=== PATIENT | female | born 1945 | race Caucasian/White ===

== ENCOUNTER 2020-01-24 09:29 | Outpatient (CLI) | payer MEDICARE, OTHER, SELFPAY ==
--- NOTE | 2020-01-24 10:00 | MM_ITS ---
WS: [id number] BILATERAL DIGITAL SCREENING MAMMOGRAPHY WITH CAD CLINICAL INFORMATION: breast cancer screening HISTORY: Screening mammogram. No current complaints. COMPARISON: TECHNIQUE: Bilateral CC and MLO views. FINDINGS: The breasts are composed of heterogeneous fibroglandular density tissue, which can limit the detectio n of small underlying mass lesions. No suspicious mass, asymmetry, calcifications, or architectural d istortion. No evidence of malignancy. MM/[place] [id number] IMPRESSION: BI-RADS: 1-Negative FOLLOW UP: 1 Year Follow-up Recommend return to annual screening mammography.
== END 2020-01-24 09:30 | disposition home or self-care (01) ==
LOC: RADSHAW 09:35
PROVIDERS: PCP Nurse Practitioner Family; Visit Provider Nurse Practitioner Family
DX: Z12.31 Encounter for screening mammogram for malignant neoplasm of breast (principal); L82.1 Other seborrheic keratosis; L81.4 Other melanin hyperpigmentation; L81.8 Other specified disorders of pigmentation; D36.10 Benign neoplasm of peripheral nerves and autonomic nervous system, unspecified; D22.9 Melanocytic nevi, unspecified; D23.9 Other benign neoplasm of skin, unspecified
CPT/HCPCS: 77067; 99203

== ENCOUNTER → 2022-02-06 14:25 | Outpatient (BNVA) | payer MEDICARE, OTHER, SELFPAY | PROVIDERS: PCP Nurse Practitioner Family; Visit Provider Surgery | DX: K21.9 Gastro-esophageal reflux disease without esophagitis (principal) | CPT/HCPCS: 99203; 99213 ==

== ENCOUNTER 2022-03-11 08:15 | Outpatient (CLI) | payer MEDICARE, OTHER, SELFPAY ==
--- NOTE | 2022-03-11 08:30 | FL_ITS ---
WS: [id number] DOUBLE CONTRAST UPPER GI EXAMINATION HISTORY: ESOPHAGEAL REFLUX COMPARISON: None available. FLUOROSCOPY TIME: 2min 23.668845pbd minutes. Barium traveled readily through the esophagus. Esophagus is dilated and patulous distally. No high-gr heber stricture. Intermittently visualized large hiatal hernia. No reflux was demonstrated during the e xamination but the GE junction did at times appear open and the distal esophagus was dilated. Stomach is distensible and pliable. Normal duodenum. No ulceration. Atherosclerosis aorta. FL/FL upper GI w air* [id number] IMPRESSION: 1. Dilated patulous mid to distal esophagus with intermittently visualized lar ge hiatal hernia. 2. No reflux was demonstrated but the GE junction did appear patulous. 3. Negative appearance of the stomach.
== END 2022-03-11 08:16 | disposition home or self-care (01) ==
LOC: RAD 08:15
PROVIDERS: PCP Nurse Practitioner Family; Visit Provider Surgery
DX: K21.9 Gastro-esophageal reflux disease without esophagitis (principal); K44.9 Diaphragmatic hernia without obstruction or gangrene
CPT/HCPCS: 74246

== ENCOUNTER 2022-04-15 07:21 | Day surgery (SDC) | payer MEDICARE, OTHER, SELFPAY ==
[2022-04-11 11:09] VITALS: BMI 30.2
[2022-04-15 07:43] VITALS: BP 148/74; PULSE 80; RESP 18; TEMP 36.6; O2SAT 96
[2022-04-15] MEDS: sodium chloride 0.9% 1,000 ML 30 ML IV (07:50)
--- NOTE | 2022-04-15 08:00 | ANES.PREANE2 ---
Pre-Anesthetic Assessment Height/Weight: Height 1.57 m Weight 74.843 kg Temp Pulse Resp BP Pulse Ox O2 Del Method 98 F 80 18 148/74 96 04/15/22 07:43 04/15/22 07:43 04/15/22 07:43 04/15/22 07:43 04/15/22 07:43 04/15/22 07:43 Preop Diagnosis: Persistent acid reflux disease Operation Date: 04/15/22 09:00 Proposed Procedures p EGD 30248,K21.9(Not Applicable) - Chevy Olsen MD Familial anesthetic complications: none Was Beta Janis taken within 24 hours: N/A Was Clonidine taken within 24 hours: N/A Last intake: Intake Last Liquid Date 04/14/22 Last Liquid Time 20:00 Last Solid Date 04/14/22 Last Solid Time 18:00 Social No alcohol and No tobacco Exam alert, oriented x 3, clear to auscultation bilaterally and regular rate & rhythm Airway Submandibular: within normal limits Cervical ROM: within normal limits Mallampati: Class II Dentition: false CV/HEM Hypertension GI Gastroesophageal Reflux Disease Metabolic Hyperlipidemia Neuropsych Anxiety and Depression Anesthetic Plan ASA status: 2 Anesthesia: MAC Medications/Allergies Home Medications Medication Instructions Recorded Confirmed Last Taken Type citalopram 20 mg tablet 20 ea PO DAILY 11/29/19 04/11/22 04/14/22 History lisinopril 5 mg tablet 5 mg PO DAILY 11/29/19 04/11/22 04/14/22 History omeprazole 40 mg capsule,delayed 40 mg PO DAILY 11/29/19 04/11/22 04/14/22 History release oxybutynin chloride 5 mg tablet 5 mg PO DAILY 11/29/19 04/11/22 04/14/22 History simvastatin 40 mg tablet 40 mg PO DAILY 11/29/19 04/11/22 04/14/22 History aspirin 81 mg tablet,delayed 81 mg PO DAILY 02/06/22 04/11/22 04/14/22 History release atorvastatin 20 mg tablet 20 mg PO DAILY 02/06/22 04/11/22 04/14/22 History Allergies Allergy/AdvReac Type Severity Reaction Status Date / Time Sulfa (Sulfonamide AdvReac Severe kidney Verified 02/08/22 06:02 Antibiotics) problems [facility] Anesthesia Medical History Essential hypertension GERD (gastroesophageal reflux disease) Mixed hyperlipidemia Stress incontinence Surgical History H/O esophagogastroduodenoscopy History of removal of cyst S/P right knee arthroscopy Status post colonoscopy Social History Smoking and tobacco status: never smoked Second hand smoke exposure: No Smoking risk assessment/counseling performed?: No Alcohol intake: never Desire information about alcohol rehabilitation?: No Counseling given: No Desire information about substance/drug rehabilitation?: No Counseling given: No Data Anesthesia Cardiac Studies: No Data to Display
--- NOTE | 2022-04-15 08:53 | W.PM.OPSFHP ---
Same Day Surgery H&P Indication for Procedure/HPI DATE OF PROCEDURE: April 15, 2022 CHIEF COMPLAINT/INDICATIONFOR SURGICAL PROCEDURE: Worsening acid reflux PREOP DIAGNOSIS: Persistent acid reflux disease PLANNED PROCEDURE: Operation Date: 04/15/22 09:00 Proposed Procedures p EGD 24022,K21.9(Not Applicable) - Chevy Olsen MD 02/06/2022 This is a pleasant 76 years old female patient referred to my practice with history of indigestion and worsening acid reflux.? Patient has been on PPI therapy for more than 6 months and it just getting worse.? No available upper GI study or previous endoscopies per chart. 04/15/2022 Comes today for diagnostic EGD and upper GI study requested by me that was done on 03/11/2022 that did show 1.? Dilated patulous mid to distal esophagus with intermittently visualized large hiatal hernia. 2.? No reflux was demonstrated but the GE junction did appear patulous. 3.? Negative appearance of the stomach. ROS All systems have been reviewed negative except as for the above or per problem list. Medications/Allergies* Home Medications Medication Instructions Recorded Confirmed Type citalopram 20 mg tablet 20 ea PO DAILY 11/29/19 04/11/22 History lisinopril 5 mg tablet 5 mg PO DAILY 11/29/19 04/11/22 History omeprazole 40 mg capsule,delayed 40 mg PO DAILY 11/29/19 04/11/22 History release oxybutynin chloride 5 mg tablet 5 mg PO DAILY 11/29/19 04/11/22 History simvastatin 40 mg tablet 40 mg PO DAILY 11/29/19 04/11/22 History aspirin 81 mg tablet,delayed 81 mg PO DAILY 02/06/22 04/11/22 History release atorvastatin 20 mg tablet 20 mg PO DAILY 02/06/22 04/11/22 History Allergies/Adverse Reactions Allergy/AdvReac Type Severity Reaction Status Date / Time Sulfa (Sulfonamide AdvReac Severe kidney Verified 02/08/22 06:02 Antibiotics) problems Pertinent History/Comorbid Conditions* Medical History (Updated 02/08/22 @ 06:02 by Chevy Olsen MD) Essential hypertension GERD (gastroesophageal reflux disease) Mixed hyperlipidemia Stress incontinence Surgical History (Updated 04/20/20 @ 10:06 by Butch Miles MD) H/O esophagogastroduodenoscopy History of removal of cyst S/P right knee arthroscopy Status post colonoscopy Social History Smoking and tobacco status: never smoked Second hand smoke exposure: No Smoking risk assessment/counseling performed?: No Alcohol intake: never Desire information about alcohol rehabilitation?: No Counseling given: No Desire information about substance/drug rehabilitation?: No Counseling given: No Pertinent Exam Findings alert, oriented x 3, regular rate & rhythm and procedure specific exam findings (Abdominal exam nontender nondistended soft) Recommendations Surgery/Procedure today (EGD with possible biopsy) Coding Level of Care Code Acute Customer Solutions Representative for Dio Fwandrew
[2022-04-15 10:13] VITALS: BP 114/81; PULSE 74; RESP 18; O2SAT 95
--- NOTE | 2022-04-15 16:31 | ANE.PACU2 ---
Inpatient post-anesthesia follow up: Airway intact: Yes Vital signs: Temperature 98 F Pulse Rate 74 Respiratory Rate 18 Blood Pressure 114/81 Pulse Oximetry 95 Oxygen Delivery Me thod Room Air Oxygen Flow Rate Fraction of Inspir ed Oxygen Hydration adequate: Yes Nausea and vomiting: No Pain level: 2 Mental status: Baseline
== END 2022-04-15 10:13 | disposition home or self-care (01) ==
PROVIDERS: PCP Nurse Practitioner Family; Visit Provider Surgery
PROC: 0DJ08ZZ Inspection of Upper Intestinal Tract, Via Natural or Artificial Opening Endoscopic (ICD-10-PCS; CPT 43235; principal; 2022-04-15 09:00)
DX: K21.00 Gastro-esophageal reflux disease with esophagitis, without bleeding (principal); Z79.82 Long term (current) use of aspirin; I10 Essential (primary) hypertension; E78.2 Mixed hyperlipidemia; K44.9 Diaphragmatic hernia without obstruction or gangrene; K29.70 Gastritis, unspecified, without bleeding
CPT/HCPCS: 43239; 88305; J2704; J7030

== ENCOUNTER → 2022-04-22 12:48 | Outpatient (BNVA) | payer MEDICARE, OTHER, SELFPAY | PROVIDERS: PCP Nurse Practitioner Family; Visit Provider Surgery | DX: K29.70 Gastritis, unspecified, without bleeding (principal); K44.9 Diaphragmatic hernia without obstruction or gangrene | CPT/HCPCS: 99213 ==

== ENCOUNTER 2022-10-10 15:07 | Outpatient (CLI) | payer MEDICARE, OTHER, SELFPAY ==
--- NOTE | 2022-10-10 15:13 | MM_ITS ---
WS: [id number] BILATERAL 3D TOMOSYNTHESIS DIGITAL SCREENING MAMMOGRAPHY WITH CAD CLINICAL INFORMATION: SCREENING HISTORY: Screening mammogram. No current complaints. COMPARISON: 2020 TECHNIQUE: Bilateral CC and MLO views. FINDINGS: Scattered fibroglandular densities bilaterally. No suspicious focal mass, asymmetry, calcifications, or architectural distortion. No evidence of malignancy. Vascular calcification. A few incidental punc ramos calcifications. MM/[place] [id number] IMPRESSION: BI-RADS: 2-Benign FOLLOW UP: 1 Year Follow-up Recommend return to annual screening mammography.
== END 2022-10-10 15:08 | disposition home or self-care (01) ==
LOC: RAD 15:10
PROVIDERS: PCP Nurse Practitioner Family; Visit Provider Nurse Practitioner Family
DX: Z12.31 Encounter for screening mammogram for malignant neoplasm of breast (principal)
CPT/HCPCS: 77063; 77067

== ENCOUNTER 2023-09-11 14:28 | Inpatient (IN) | payer MEDICARE, OTHER, SELFPAY ==
[2023-09-11 14:30] VITALS: BP 96/58; PULSE 130; RESP 16; TEMP 37.9; O2SAT 98; BMI 31.1
--- NOTE | 2023-09-11 14:51 | XRR_ITS ---
PROCEDURE INFORMATION: Exam: XR Chest Exam date and time: 09/11/2023 3:36 PM Age: 78 years old Clinical indication: Pain; Angina pectoris; Additional info: Chest pain TECHNIQUE: Imaging protocol: Radiologic exam of the chest. Views: 1 view. COMPARISON: No relevant prior studies available. FINDINGS: Lungs: No consolidation. Pleural spaces: No pleural effusion. No pneumothorax. Heart/Mediastinum: No acute findings. Bones/joints: No acute findings. XR/XR chest 1V portable [id number] IMPRESSION: No acute findings.
--- NOTE | 2023-09-11 14:53 | ECG_ITS ---
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 Measurements Intervals Oracle Rate: 85 P: 41 UT: 162 QRS: -3 QRSD: 77 T: 45 QT: 376 QTc: 447 Interpretive Statements SINUS RHYTHM WITH OCCASIONAL SUPRAVENTRICULAR PREMATURE COMPLEXES LOW QRS VOLTAGE IN PRECORDIAL LEADS [QRS DEFLECTION < 1.0 mV IN CHEST LEADS] ANTEROSEPTAL MYOCARDIAL INFARCTION , OF INDETERMINATE AGE [40+ ms Q WAVE IN V1-V4] No previous ECG available for comparison Electronically Signed On 09-13-2023 12:39:19 CDT by Oleg Sawyer M.D. [id number]
--- NOTE | 2023-09-11 14:53 | ED_ITS ---
HPI - Nausea/Vomiting/Diarrhea 2 General: Chief complaint: Nausea/Vomiting/Diarrhea Stated complaint: Fever, Sob, N/V Time Seen by Provider: 09/11/23 14:51 History of Present Illness: 78-year-old female with a history of hyp ertension hyperlipidemia and GERD who presents the emergency room with nausea vomiting diarrhea. This all started yesterday. She was seen at a different emergency room and was given Phenergan pills for home and has not able to keep those down and is continue to vomit. Diarrhea has subsided. She has been very generally weak. Nothing focal. No altered mental status. Her blood pressure is low on presentation. She has not been eating or drinking anything she says. She also had a fever of 103 at home. She is 100.3 here. Family had given her some Excedrin. She has no focal abdominal pain. She says she was a little crampy yesterday but otherwise she was okay. Patient does report a cough recently. Review of Systems 2 Narrative: Constitutional symptoms: Negative except as documented in HPI. Skin symptoms: Negative except as documented in HPI. Eye symptoms: Negative except as documented in HPI. ENMT symptoms: Negative except as documented in HPI. Respiratory symptoms: Negative except as documented in HPI. Cardiovascular symptoms: Negative except as documented in HPI. Gastrointestinal symptoms: Negative except as documented in HPI. Genitourinary symptoms: Negative except as documented in HPI. Musculoskeletal symptoms: Negative except as documented in HPI. Neurologic symptoms: Negative except as documented in HPI. Psychiatric symptoms: Negative except as documented in HPI. Endocrine symptoms: Negative except as documented in HPI. PFS ED 2 PFSH: Medical History Essential hypertension GERD (gastroesophageal reflux disease) Mixed hyperlipidemia Stress incontinence Surgical History H/O esophagogastroduodenoscopy History of removal of cyst S/P right knee arthroscopy Status post colonoscopy Social History Smoking and tobacco/nicotine status: never used tobacco/nicotine Second hand smoke exposure: No Alcohol intake: never Substance/Drug Use: never Physical Exam 2 Narrative: EXAM NARRATIVE: General: Alert, no acute distress. Skin: Warm, dry. Head: Normocephalic, atraumatic. Neck: Supple, trachea midline. Eye: Extraocular movements are intact. Ears, nose, mouth and throat: Dry oral mucosa Cardiovascular: Regular, tachycardic, normal peripheral perfusion. Respiratory: Lungs are clear to auscultation, respirations are non-labored, breath sounds are equal, Symmetrical chest wall expansion. Gastrointestinal: Soft, Nontender, Non distended, Normal bowel sounds. Musculoskeletal: Normal ROM, no deformity. Neurological: Alert and oriented, No focal neurological deficit observed. Psychiatric: Cooperative, appropriate mood & affect. Course 2 Vital Signs: Vital signs: Vital Signs Temperature 100.3 F H 09/11/23 14:30 Pulse Rate 78 09/11/23 15:50 Respiratory Rate 16 09/11/23 14:30 Blood Pressure 96/58 09/11/23 14:30 Pulse Oximetry 94 09/11/23 15:50 Oxygen Delivery Me thod Room Air 09/11/23 14:30 MDM - Nausea/Vomiting/Diarrhea Medical Decision Making Medical decision making: Differential diagnosis for this patient with nausea and vomiting including but not limited to and based on the above HPI, review of systems and physical exam: Urinary tract infection. Appendicitis. Cholecystis. colitis. small bowel obstruction. crohn's flare. pancreatitis. gastritis. peptic ulcer. cyclic vomiting. Viral illness. Influenza. COVID. - Workup - labwork and imaging ordered to evaluate, rule in and rule out above pathologies. Lab Review: Laboratory results were reviewed and interpreted by myself the emergency room physician. Patient has leukocytosis with a white count of 19,000. Hemoglobin is 12. BUN and creatinine are 21 and 1.2 some slight renal insufficiency. Chest x-ray: No acute process. No infiltrate. No pneumothorax. No cardiomegaly. This was reviewed and interpreted by myself the ER physician. EKG: Time 1453 rate 85 normal sinus rhythm, No ST-T changes, no ectopy, normal SC & QRS intervals, This was reviewed and interpreted by myself the ER physician at 1456. I looked at her CT of her chest at 4:46 PM. There is a right lower lobe pneumonia that was not seen on chest x-ray. Patient had already received 2 L of fluid which would be appropriate 30 mL/kg for her ideal body weight. I ordered broad-spectrum antibiotics at 4:[address] of the abdomen and pelvis: There is no acute intra-abdominal process. However a right lower lobe consolidation is seen. This was not seen on chest x- ray. This was reviewed and interpreted by myself the emergency room physician. I also reviewed the radiologist report I reviewed the patient's medical record. Reexamination: Patient's blood pressure is improved and her heart rate has improved as well. She is requiring a couple liters of oxygen mainly for work of breathing. O2 sats were in the low 90s but she was feeling very short of breath. Her heart rate and blood pressure may have been just related to dehydration, however she also has a elevated white count so I am treating her is septic. Assessment and plan: Pneumonia Sepsis Viral gastroenteritis Dehydration -Patient has was probably a viral gastroenteritis and a pneumonia that is most likely bacterial. She was hypotensive and tachycardic on presentation and has white count of 20,000. I am treating her as if she was septic. Her lactate however was initially only 1.4. She has responded to fluids. -2 L normal saline bolus. Fluid volumes based on ideal body weight. -Broad-spectrum antibiotics were administered. Meropenem and Zyvox -Sepsis quality measures. -Lactic acid with a reflex was ordered. -Blood cultures were ordered. Procalcitonin ordered. -I discussed the patient with the hospitalist on-call who is admitting the patient. - Discussed findings and plan with patient. Answered any questions. - All laboratory values were reviewed and interpreted personally by myself, the ER physician - All imaging was reviewed and interpreted personally by myself, the ER physician. - Evaluation and treatment of this problem were appropriate in the emergency setting -I spent a total of >35 minutes of critical care time managing the patient, independent of any other practitioner. -The time involved in the performance of separately reportable procedures was not counted towards critical care time. Lab Data 09/11/23 15:24 09/11/23 15:24 Radiology Impressions Chest X-Ray 09/11/23 14:51 IMPRESSION: No acute findings. ADDENDUM: 09/11/23 1649 Right lower lobe atelectasis/consolidation. Abdomen/Pelvis CT 09/11/23 16:08 IMPRESSION: No acute abdominal findings. Right lower lobe consolidation/pneumonia. Laboratory Results WBC 19.09 10^3/uL (3.29-11.43) H 09/11/23 15:24 RBC 4.05 10^6/uL (3.85-5.65) 09/11/23 15:24 Hgb 12.20 g/dL (11.27-16.99) 09/11/23 15:24 Hct 37.0 % (36-47) 09/11/23 15:24 MCV 91.4 fl (85-98) 09/11/23 15:24 MCH 30.1 pg (27-33) 09/11/23 15:24 MCHC 33.0 g/dL (30-55) 09/11/23 15:24 RDW 12.4 % (12.1-15.1) 09/11/23 15:24 Plt Count 258 10^3/cmm (157-399) 09/11/23 15: MPV 9.0 fL (7.4-10.4) 09/11/23 15:24 Neut % (Auto) 86.2 % 09/11/23 15:24 Lymph % (Auto) 6.0 % 09/11/23 15:24 [place] % (Auto) 6.8 % 09/11/23 15:24 Eos % (Auto) 0.0 % 09/11/23 15:24 Baso % (Auto) 0.3 % 09/11/23 15:24 Neut # (Auto) 16.47 10^3/uL (1.8-7.7) H 09/11/23 15:24 Lymph # (Auto) 1.1 10^3/uL (0.8-4.8) 09/11/23 15:24 [place] # (Auto) 1.3 10^3/uL (0.2-0.9) H 09/11/23 15:24 Eos # (Auto) 0.0 10^3/uL (0.0-0.8) 09/11/23 15:24 Baso # (Auto) 0.1 10^3/uL (0.0-0.1) 09/11/23 15:24 Nucleated RBC % (auto) 0 % 09/11/23 15:24 Nucleated RBCs # 0.0 /100WBC 09/11/23 15:24 Sodium 133 mmol/L (136-145) L 09/11/23 15:24 Potassium 3.9 mmol/L (3.5-5.1) 09/11/23 15:24 Chloride 97 mmol/L (98-107) L 09/11/23 15:24 Carbon Dioxide 20 mmol/L (22-29) L 09/11/23 15:24 Anion Gap 19.9 (5-19) H 09/11/23 15:24 BUN 21 mg/dL (8-23) 09/11/23 15:24 Creatinine 1.2 mg/dL (0.5-0.9) H 09/11/23 15:24 GFR Calculation Not Reportable 09/11/23 15:24 Glucose 140 mg/dL (65-115) H 09/11/23 15:24 Calculated Osmolality 281 mOsm/kg (285-295) L 09/11/23 15:24 Lactic Acid 1.4 mmol/L (0.5-2.2) 09/11/23 15:24 Calcium 8.8 mg/dL (8.5-10.5) 09/11/23 15:24 Total Bilirubin 0.5 mg/dL (0.15-1.2) 09/11/23 15:24 AST 20 U/L (0-32) 09/11/23 15:24 ALT 14 U/L (0-33) 09/11/23 15:24 Alkaline Phosphatase 60 U/L (35-105) 09/11/23 15:24 Total Protein 7.8 g/dL (6.6-8.7) 09/11/23 15:24 Albumin 3.7 g/dL (3.5-5.2) 09/11/23 15:24 Globulin 4.1 g/dL (1.3-4.6) 09/11/23 15:24 Lipase 24 U/L (13-60) 09/11/23 15:24 All radiology interpretation(s) finalized by discharge Discharge Plan Discharge Patient Disposition: Admitted As Inpatient Clinical Impression: Pneumonia, Dehydration, Sepsis, Viral gastroenteritis, Hypotension Condition: Stable Coding Level of Care Code ED Labor Utilization Superintendent for Dio Machado
[2023-09-11 15:05] VITALS: PULSE 74; O2SAT 94
[2023-09-11 15:20] VITALS: PULSE 79; O2SAT 93
[2023-09-11] MEDS: sodium chloride 0.9% 1,000 ML 999 ML IV ×2 (15:29→21:46)
[2023-09-11 15:31] LABS: Basophils # 0.1 10^3/uL (0.0-0.1); Basophils % 0.3 %; Lymphocytes # 1.1 10^3/uL (0.8-4.8); Mean Corpuscular Hemoglobin 30.1 pg (27-33); Mean Corpuscular Volume 91.4 fl (85-98); Monocytes # 1.3 10^3/uL (0.2-0.9); Monocytes % 6.8 %; Neutrophils # 16.47 10^3/uL (1.8-7.7); Neutrophils % 86.2 %; Nucleated Red Blood Cells % 0 %; Platelet Count 258 10^3/cmm (157-399); Red Blood Count 4.05 10^6/uL (3.85-5.65); Red Cell Distribution Width 12.4 % (12.1-15.1); White Blood Count 19.09 10^3/uL (3.29-11.43)
[2023-09-11] MEDS: ondansetron 2 mg/ML SDV 2 mL 8 MG IVP (15:31)
[2023-09-11 15:35] VITALS: PULSE 76; O2SAT 93
[2023-09-11 15:50] VITALS: PULSE 78; O2SAT 94
[2023-09-11 15:54] LABS: Lactic Sepsis W/Reflex 1.4 mmol/L (0.5-2.2)
[2023-09-11 15:56] LABS: Alanine Aminotransferase 14 U/L (0-33); Albumin Level 3.7 g/dL (3.5-5.2); Alkaline Phosphatase 60 U/L (35-105); Anion Gap 19.9 (5-19); Aspartate Amino Transferase 20 U/L (0-32); Blood Urea Nitrogen 21 mg/dL (8-23); Calcium 8.8 mg/dL (8.5-10.5); Carbon Dioxide 20 mmol/L (22-29); Chloride 97 mmol/L (98-107); Creatinine Clr Calc Pharmacy 36.5905; Globulin 4.1 g/dL (1.3-4.6); Glucose 140 mg/dL (65-115); Lipase 24 U/L (13-60); Osmolality Calculated 281 mOsm/kg (285-295); Potassium 3.9 mmol/L (3.5-5.1); Sodium 133 mmol/L (136-145); Total Bilirubin 0.5 mg/dL (0.15-1.2); Total Protein 7.8 g/dL (6.6-8.7)
--- NOTE | 2023-09-11 16:08 | CTR_ITS ---
PROCEDURE INFORMATION: Exam: CT Abdomen And Pelvis With Contrast Exam date and time: 09/11/2023 4:28 PM Age: 78 years old Clinical indication: Vomiting; Prior surgery; Surgery date: 6+ months; Surgery type: Esophageal; Additional info: Vomiting, leukocytosis TECHNIQUE: Imaging protocol: Computed tomography of the abdomen and pelvis with contrast. Radiation optimization: All CT scans at this facility use at least one of these dose optimization techniques: automated exposure control; mA and/or kV adjustment per patient size (includes targeted exams where dose is matched to clinical indication); or iterative reconstruction. Contrast material: OMNI 350; Contrast volume: 95 ml; Contrast route: INTRAVENOUS (IV); COMPARISON: RF FL upper GI w air* [id number] 03/11/2022 8:51 AM RADIATION DOSE METRICS: Total DLP (mGy-cm): 778.03 FINDINGS: Lungs: Right lower lobe consolidation/pneumonia. Liver: No acute findings Gallbladder and bile ducts: Cholecystectomy. Pancreas: No ductal dilation. Spleen: No splenomegaly. Adrenal glands: No mass. Kidneys and ureters: No stones or hydronephrosis. Stomach and bowel: No obstruction. Appendix: No evidence of appendicitis. Intraperitoneal space: No free air. No significant fluid collection. Vasculature: No abdominal aortic aneurysm. Lymph nodes: No enlarged lymph nodes. Urinary bladder: No acute findings. Reproductive: No acute findings. Bones/joints: No acute findings. Soft tissues: No acute findings. CT/CT abdomen pelvis w con* [id number] IMPRESSION: No acute abdominal findings. Right lower lobe consolidation/pneumonia.
[2023-09-11] MEDS: iohexol 350 mg/mL 500 mL Btl (per mL) IV (16:30)
[2023-09-11] MEDS: meropenem 500 MG in sodium chloride 0.9% (plus) 50 ML 100 MG IV (17:34)
--- NOTE | 2023-09-11 17:53 | P.HP_ITS ---
Providers/Chief Complaint 2 Primary Care Provider: Jd Gregory Chief Complaint: Fever, Sob, N/V History of Present Illness Teressa Gillespie is a 78 year old female who presented to hospital with chief complaint of fever, productive cough, nausea vomiting and diarrhea. Her symptoms started 3 to 4 days ago, no one is sick around her, she lives with a boyfriend, does not smoke, does not use oxygen. Her symptoms started with diarrhea which was followed by nausea and vomiting. Patient was reluctant to come to the ER however because of her worsening of symptoms she decided to go to the clinic from where she was referred to the ER for further evaluation. In the ER she was diagnosed with community-acquired pneumonia and sepsis. She has received septic bolus blood cultures were taken, antibiotics administered. Lactic acid is normal. Review of Systems 2 Const: Reports: fever(s), chills and night sweats Eyes: Denies: change in vision ENMT: Denies: throat pain Card: Denies: chest pain Resp: Reports: dyspnea and productive cough GI: Reports: nausea and vomiting Medications/Allergies Home Medications Medication Instructions Recorded Confirmed Last Taken Type citalopram 20 mg tablet 20 ea PO DAILY 11/29/19 09/11/23 09/10/23 History lisinopril 5 mg tablet 5 mg PO DAILY 11/29/19 09/11/23 09/10/23 History omeprazole 40 mg capsule,delayed 40 mg PO DAILY 11/29/19 09/11/23 09/10/23 History release oxybutynin chloride 5 mg tablet 5 mg PO DAILY 11/29/19 09/11/23 09/10/23 History aspirin 81 mg tablet,delayed 81 mg PO DAILY 02/06/22 09/11/23 09/10/23 History release atorvastatin 20 mg tablet 20 mg PO QPM 02/06/22 09/11/23 09/10/23 History hzkljfm-peamoxtmhiqrh-miyxczzp 250 2 tab PO Q6H PRN headache/fever 09/11/23 09/11/23 09/11/23 History mg-250 mg-65 mg tablet (Excedrin Migraine) bjndgkvf-qhk-eefoq ac 400 1 tab PO DAILY 09/11/23 09/11/23 09/10/23 History mcg-calcium carb 500 mg-vit K1 20 mcg tablet (Women's 50 Plus Multivitamin) promethazine 25 mg tablet 25 mg PO Q6H PRN Nausea And 09/11/23 09/11/23 09/11/23 History Vomiting vitamins A,C,G-hvwh-kmpzfe 4,296 1 cap PO DAILY 09/11/23 09/11/23 09/10/23 History mcg-226 mg-90 mg capsule (PreserVision AREDS) Allergies Allergy/AdvReac Type Severity Reaction Status Date / Time Sulfa (Sulfonamide AdvReac Severe kidney Verified 09/11/23 15:10 Antibiotics) problems PFSH Acute 2 PFSH: Medical History Essential hypertension Mixed hyperlipidemia Stress incontinence GERD (gastroesophageal reflux disease) Surgical History H/O esophagogastroduodenoscopy Status post colonoscopy S/P right knee arthroscopy History of removal of cyst Social History Smoking and tobacco/nicotine status: never used tobacco/nicotine Second hand smoke exposure: No Alcohol intake: never Substance/Drug Use: never Vitals/I&O/Wt Last Vital Signs Temp 100.3 F H 09/11/23 14:30 Pulse 78 09/11/23 15:50 Resp 16 09/11/23 14:30 BP 96/58 09/11/23 14:30 Pulse Ox 94 09/11/23 15:50 O2 Del Method Room Air 09/11/23 14:30 Weight last 48 hrs Weight 77.281 kg Physical Exam 2 Narrative: Pleasant calm Was experiencing dry heaves S1, S2 Currently on 2 L Hemodynamically stable No active chest pain Pleasant and cooperative Mild signs of dehydration Nonfocal neuroexam Family at the bedside Data 09/12/23 02:54 09/12/23 02:54 A&P Assessment and plan (1) Hypotension: (2) Gastritis: (3) Dehydration: (4) Sepsis: (5) Pneumonia: Plan Sepsis related to community-acquired pneumonia Continue IV fluids Septic bolus administered Criteria met with fever tachypnea tachycardia lactic acid is normal Endorgan damage with creatinine 1.2 Continue ceftriaxone along azithromycin Blood pressure improving with IV fluid hydration Nausea and vomiting most likely related to lower lobe pneumonia near diaphragm Will give her Zofran Check echo serial troponin and EKG Hypotensive related to sepsis: No sign of shock for now Hold antihypertensive regimen More than 2 midnights anticipated Attestations 2 Medical Necessity Statement*: More than 2 midnights anticipated for management of sepsis, pneumonia Diagnoses Hypotension I95.9 Gastritis K29.70 Dehydration E86.0 Sepsis A41.9 Pneumonia J18.9
[2023-09-11 20:03] VITALS: BP 150/70; PULSE 95; RESP 17; TEMP 36.6; O2SAT 90
--- NOTE | 2023-09-11 21:02 | ECG_ITS ---
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 Measurements Intervals [place] Rate: 74 P: 53 ME: 165 QRS: -3 QRSD: 91 T: 29 QT: 399 QTc: 443 Interpretive Statements SINUS RHYTHM LOW QRS VOLTAGE IN PRECORDIAL LEADS [QRS DEFLECTION < 1.0 mV IN CHEST LEADS] Compared to ECG 09/11/2023 14:53:52 Myocardial infarct finding no longer present Electronically Signed On 09-13-2023 12:48:09 CDT by Oleg Sawyer M.D. [id number]
[2023-09-11 21:19] LABS: Troponin(5th) Baseline 19 ng/L (0-10)
[2023-09-11 21:21] LABS: Add Urine Microscopic? YES; Bilirubin Urine Neg (Negative); Blood Urine 3+ (Negative); Glucose Urine UA Norm (Normal); Ketones Urine 2+ (Negative); Leukocyte Esterase Urine Negative (Negative); Nitrate Urine Negative (Negative); Protein Urine 2+ (Negative); Urine Appearance Clear (CLEAR); Urine Color Yellow (Yellow); Urobilinogen Urine 1 mg/dL (Negative); pH Urine 5 (5-7)
[2023-09-11 21:22] LABS: Amorphous Sediment Urine TRACE /hpf; Bacteria Urine TRACE /hpf; Coarse Granular Casts Urine 0-4 /lpf; Mucus Urine TRACE /hpf; Squamous Epithelial Cell Urine 0-4 /hpf (0-5); WBC Urine 15-25 /hpf (0-5)
[2023-09-11 21:23] LABS: Hyaline Casts Urine 0-4 /lpf
[2023-09-11] MEDS: linezolid premix 600 MG/300 ML PREMIX 300 MG IV (21:46)
[2023-09-11] MEDS: sodium chloride 0.9% 1,000 ML 75 ML IV (21:46)
[2023-09-11] MEDS: enoxaparin 40 mg/0.4 mL Syringe SUBCUT (21:47)
[2023-09-11] MEDS: ondansetron 2 mg/ML SDV 2 mL 4 MG IVP (22:14)
[2023-09-11 23:29] LABS: Troponin 5 2HR 17.11 ng/L (0-10)
[2023-09-11 23:35] LABS: Troponin 5 2HR Delta -1.89 ABS# (0-10)
[2023-09-12] VITALS (11 sets, daily range): BP systolic 101–171; BP diastolic 64–87; PULSE 78–97; RESP 17–20; TEMP 36.6–38.1; O2SAT 90–97
--- NOTE | 2023-09-12 01:02 | ECG_ITS ---
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 Measurements Intervals [place] Rate: 102 P: 47 CO: 167 QRS: 15 QRSD: 76 T: 36 QT: 321 QTc: 419 Interpretive Statements SINUS TACHYCARDIA LOW QRS VOLTAGE IN PRECORDIAL LEADS [QRS DEFLECTION < 1.0 mV IN CHEST LEADS] SEPTAL MYOCARDIAL INFARCTION , OF INDETERMINATE AGE [40+ ms Q WAVE IN V1/V2] Compared to ECG 09/11/2023 23:29:28 Myocardial infarct finding now present Sinus rhythm no longer present Electronically Signed On 09-13-2023 12:47:55 CDT by Oleg Sawyer M.D. [id number]
[2023-09-12 03:16] LABS: Basophils % 0.2 %; Hematocrit 34.7 % (36-47); Lymphocytes # 0.9 10^3/uL (0.8-4.8); Lymphocytes % 5.3 %; Mean Corpuscular HGB Conc 31.4 g/dL (30-55); Mean Corpuscular Hemoglobin 29.5 pg (27-33); Mean Platelet Volume 9.2 fL (7.4-10.4); Monocytes # 1.1 10^3/uL (0.2-0.9); Monocytes % 6.3 %; Neutrophils # 14.72 10^3/uL (1.8-7.7); Neutrophils % 87.4 %; Nucleated Red Blood Cells % 0 %; Platelet Count 228 10^3/cmm (157-399); Red Blood Count 3.69 10^6/uL (3.85-5.65); Red Cell Distribution Width 12.6 % (12.1-15.1); White Blood Count 16.86 10^3/uL (3.29-11.43)
[2023-09-12 03:34] LABS: Anion Gap 17.9 (5-19); Blood Urea Nitrogen 15 mg/dL (8-23); C Reactive Protein 239.8 mg/L (0.0-4.9); Calcium 7.6 mg/dL (8.5-10.5); Carbon Dioxide 19 mmol/L (22-29); Chloride 97 mmol/L (98-107); Creatinine Clr Calc Pharmacy 50.0829; Glucose 119 mg/dL (65-115); Magnesium 1.9 mg/dL (1.7-2.3); Osmolality Calculated 272 mOsm/kg (285-295); Potassium 3.9 mmol/L (3.5-5.1); Sodium 130 mmol/L (136-145)
[2023-09-12] MEDS: ondansetron 2 mg/ML SDV 2 mL 4 MG IVP (03:56)
--- NOTE | 2023-09-12 06:00 | USCV_ITS ---
Teressa Gillespie Age: 78 Gender: F : 1945 Exam Date: 09/12/2023 09:51 Ordering Phys: Sabrina Romo MD Technologist: Roberto Arteaga Exam Location: [facility] Indication: n/v BP: 149 / 80 HR: 83 Rhythm: Sinus Technical Quality: Adequate MEASUREMENTS (Male / Female) Normal Values 2D ECHO LV Diastolic Diameter PLAX 3.9 cm 4.2 - 5.9 / 3.9 - 5.3 cm IVS Diastolic Thickness 0.9 cm 0.6 - 1.0 / 0.6 - 0.9 cm IVS Systolic Thickness 1.5 cm LVPW Diastolic Thickness 1.1 cm 0.6 - 1.0 / 0.6 - 0.9 cm LVPW Systolic Thickness 1.8 cm LVOT Diameter 2.0 cm LV Ejection Fraction 2D Teich 73.4 % LV Ejection Fraction MOD 2C 78.4 % LV Ejection Fraction 2C AL 78.0 % LA Diameter 3.7 cm RA Systolic Volume 4C AL 29.3 ml RA Systolic Volume 4C MOD 27.9 ml LA Sys Volume AL 35.5 cm cubed LA Sys Volume Index AL 17.9 cm cubed/m squared Aorta at Sinotubular Diameter 2.6 cm IVC Diameter 1.7 cm M-MODE LA Ao Ratio MM 1.4 AV Cusp Separation MM 1.4 cm DOPPLER AV Peak Velocity 199.0 cm/s LVOT Peak Velocity 176.0 cm/s AV Area Cont Eq vti 3.3 cm squared AV Area Cont Eq pk 2.8 cm squared MV Peak Velocity 144.0 cm/s MV Area PHT 5.0 cm squared Mitral E to A Ratio 0.7 TV Peak Velocity 369.0 cm/s TR Peak Velocity 376.0 cm/s TR Peak Gradient 56.6 mmHg TR Mean Velocity 273.0 cm/s TR Mean Gradient 34.7 mmHg TR Velocity Time Integral 101.0 cm PV Peak Velocity 100.0 cm/s RV Ejection Time 0.3 s FINDINGS Left Ventricle Left ventricle is normal in size. LV systolic function is normal with EF of 55 to 60%. No regional wall motion abnormalities are seen. Grade 1 diastolic dysfunction Right Ventricle Normal in size and function Right Atrium Normal in size Left Atrium Normal in size Mitral Valve Structurally normal valve. Mild mitral regurgitation. Aortic Valve Aortic valve is thickened. Mild aortic stenosis with mean gradient of 10 mmHg. Tricuspid Valve Mild tricuspid regurgitation. RVSP is 50-55mmHg. This is consistent with moderate pulmonary hypertension. Pulmonic Valve Not well visualized Pericardium Normal Aorta Normal in size IVC Appears to be normal CONCLUSIONS LV systolic function is normal due to EF of 55 to 60%. Grade 1 diastolic dysfunction. Mild mitral regurgitation Mild aortic stenosis Mild tricuspid regurgitation Moderate pulmonary hypertension No comparison studies are available. Oleg Sawyer MD (Electronically Signed) Final Date: 12 Sep 2023 18:38 S
--- NOTE | 2023-09-12 07:17 | P.PN_ITS ---
Subjective 2 Subjective: Low-grade fever Leukocytosis trending down Troponin trending down After chest pain Vitals/I&O/Wt Last Vital Signs Temp 100.1 F H 09/12/23 04:00 Pulse 97 09/12/23 04:00 Resp 19 H 09/12/23 04:00 BP 167/82 09/12/23 04:00 Pulse Ox 90 09/12/23 04:00 O2 Del Method Room Air 09/12/23 04:00 09/11/23 09/12/23 09/12/23 22:59 06:59 14:59 Intake Total 1350 / 1350 Balance 1350 / 1350 Weight last 48 hrs Weight 86.438 kg Weight 81.329 kg Weight 77.281 kg Physical Exam 2 Narrative: Pleasant and calm Currently on IV fluids Hemodynamically stable On room air GCS 15 Nursing abdominal pain Nausea vomiting slightly better Nonfocal neuroexam Pleasant and cooperative Data 09/12/23 02:54 09/12/23 02:54 Micro: Microbiology 09/11/23 22:50 Blood Culture - Preliminary Blood SPECIMEN COLLECTED 09/11/23 20:28 Blood Culture - Preliminary Blood SPECIMEN COLLECTED A&P Assessment and plan (1) Hypotension: (2) Pneumonia: (3) Sepsis: (4) Dehydration: (5) Gastritis: Plan Sepsis related to pneumonia Leukocytosis improving Low-grade fever today Will wait for sputum and blood culture Clinical signs of improvement noted Monitor inflammatory markers on daily basis Continue IV fluids Awaiting echo, troponin without significant delta No active chest pain Hypotension related to sepsis, no sign of septic shock Improved with IV fluids Nausea vomiting also related to lower lobe pneumonia Cardiac diet Monitor blood pressure for now, holding antihypertensive regimen DVT prophylaxis on board Full code Disposition: Likely on Thursday, she will go back home if keeps showing signs of improvement and white count below 15,000 Attestations 2 Medical Necessity Statement*: Continue medical management Diagnoses Hypotension I95.9 Pneumonia J18.9 Sepsis A41.9 Dehydration E86.0 Gastritis K29.70
[2023-09-12] MEDS: oxybutynin 5 mg Tablet PO (09:10)
[2023-09-12] MEDS: pantoprazole DR 40 mg Tablet PO (09:10)
[2023-09-12] MEDS: cefTRIAXone 1,000 MG in sodium chloride 0.9% (plus) 50 ML 100 MG IV (09:11)
[2023-09-12] MEDS: aspirin 81 mg EC Tablet PO (09:11)
[2023-09-12] MEDS: azithromycin 250 mg Tablet 500 MG PO (09:11)
[2023-09-12] MEDS: linezolid premix 600 MG/300 ML PREMIX 300 MG IV ×2 (10:33→21:33)
[2023-09-12] MEDS: oxyCODONE-APAP 5-325 mg Tablet 1 TAB PO ×2 (11:46→23:13)
[2023-09-12] MEDS: sodium chloride 0.9% 1,000 ML 75 ML IV (14:13)
[2023-09-12] MEDS: enoxaparin 40 mg/0.4 mL Syringe SUBCUT (17:59)
[2023-09-12] MEDS: ipratropium-albuterol 3 mL Neb INHALATION (22:57)
[2023-09-13] VITALS (7 sets, daily range): BP systolic 115–148; BP diastolic 71–80; PULSE 66–87; RESP 17–19; TEMP 36.4–37.9; O2SAT 91–96
[2023-09-13 06:36] LABS: Basophils % 0.4 %; Eosinophils % 0.1 %; Hematocrit 34.5 % (36-47); Lymphocytes % 9.1 %; Mean Corpuscular HGB Conc 32.5 g/dL (30-55); Mean Corpuscular Hemoglobin 29.2 pg (27-33); Mean Corpuscular Volume 89.8 fl (85-98); Mean Platelet Volume 9.5 fL (7.4-10.4); Monocytes # 0.7 10^3/uL (0.2-0.9); Monocytes % 6.5 %; Neutrophils # 9.38 10^3/uL (1.8-7.7); Neutrophils % 82.9 %; Nucleated Red Blood Cells % 0 %; Platelet Count 250 10^3/cmm (157-399); Red Blood Count 3.84 10^6/uL (3.85-5.65); Red Cell Distribution Width 12.7 % (12.1-15.1)
--- NOTE | 2023-09-13 06:48 | P.PN_ITS ---
Subjective 2 Subjective: Low-grade fever Patient endorsing feeling better Bringing up sputum with her cough Vitals/I&O/Wt Last Vital Signs Temp 99.1 F 09/13/23 04:00 Pulse 87 09/13/23 04:00 Resp 19 H 09/13/23 04:00 BP 148/75 09/13/23 04:00 Pulse Ox 96 09/13/23 04:00 O2 Del Method Nasal Cannula 09/12/23 23:02 O2 Flow Rate 2 09/12/23 23:02 09/12/23 09/12/23 09/13/23 14:59 22:59 06:59 Intake Total 1420 / 1420 1260 / 2680 385 / 3065 Balance 1420 / 1420 1260 / 2680 385 / 3065 Weight last 48 hrs Weight 87.135 kg Weight 86.438 kg Weight 81.329 kg Weight 77.281 kg Physical Exam 2 Narrative: Pleasant cough Nonfocal neuroexam Euvolemic GCS 15 Currently on 2 L Pleasant cough Upper chest pain Productive cough Data 09/13/23 05:58 09/12/23 02:54 Micro: Microbiology 09/11/23 22:50 Blood Culture - Preliminary Blood NEGATIVE TO DATE 09/11/23 20:28 Blood Culture - Preliminary Blood NEGATIVE TO DATE A&P Assessment and plan (1) Hypotension: (2) Acid reflux disease: (3) Gastritis: (4) Dehydration: (5) Sepsis: (6) Pneumonia: Plan Sepsis related to pneumonia Improving Low-grade fever Continue antibiotics Plan to discharge her by Thursday Productive cough with sputum Low-grade fever noted overnight Patient is constipated we will give her low-dose lactulose I will restart her antihypertensive regimen Discontinue IV fluids Signs of dehydration improving Attestations 2 Medical Necessity Statement*: Discharge on Thursday Diagnoses Hypotension I95.9 Acid reflux disease K21.9 Gastritis K29.70 Dehydration E86.0 Sepsis A41.9 Pneumonia J18.9
[2023-09-13 06:51] LABS: Anion Gap 18.8 (5-19); Blood Urea Nitrogen 16 mg/dL (8-23); Calcium 7.9 mg/dL (8.5-10.5); Carbon Dioxide 19 mmol/L (22-29); Chloride 98 mmol/L (98-107); Creatinine Clr Calc Pharmacy 51.9412; Glucose 99 mg/dL (65-115); Osmolality Calculated 275 mOsm/kg (285-295); Potassium 3.8 mmol/L (3.5-5.1); Sodium 132 mmol/L (136-145)
[2023-09-13] MEDS: lactulose oral liq 20 gm/30 mL UDC 10 GM PO (07:41)
[2023-09-13] MEDS: aspirin 81 mg EC Tablet PO (09:50)
[2023-09-13] MEDS: oxybutynin 5 mg Tablet PO (09:50)
[2023-09-13] MEDS: azithromycin 250 mg Tablet 500 MG PO (09:50)
[2023-09-13] MEDS: pantoprazole DR 40 mg Tablet PO (09:50)
[2023-09-13] MEDS: lisinopril 5 mg Tablet PO (09:50)
[2023-09-13] MEDS: cefTRIAXone 1,000 MG in sodium chloride 0.9% (plus) 50 ML 100 MG IV (09:50)
[2023-09-13] MEDS: acetaminophen 500 mg Tablet PO (12:44)
[2023-09-13] MEDS: enoxaparin 40 mg/0.4 mL Syringe SUBCUT (18:23)
[2023-09-14 00:35] VITALS: BP 151/79; PULSE 79; RESP 18; O2SAT 94
[2023-09-14] MEDS: acetaminophen 500 mg Tablet PO (02:28)
[2023-09-14 04:52] VITALS: BP 123/78; PULSE 63; RESP 16; TEMP 37.2; O2SAT 94
[2023-09-14 05:05] LABS: Basophils % 0.4 %; Eosinophils % 0.4 %; Hematocrit 32.9 % (36-47); Lymphocytes # 1.3 10^3/uL (0.8-4.8); Lymphocytes % 16.1 %; Mean Corpuscular HGB Conc 33.4 g/dL (30-55); Mean Corpuscular Hemoglobin 29.5 pg (27-33); Mean Corpuscular Volume 88.2 fl (85-98); Mean Platelet Volume 9.5 fL (7.4-10.4); Monocytes # 0.6 10^3/uL (0.2-0.9); Monocytes % 8.1 %; Neutrophils # 5.85 10^3/uL (1.8-7.7); Nucleated Red Blood Cells % 0 %; Platelet Count 254 10^3/cmm (157-399); Red Blood Count 3.73 10^6/uL (3.85-5.65); Red Cell Distribution Width 12.5 % (12.1-15.1)
[2023-09-14 05:27] LABS: Anion Gap 13.2 (5-19); Blood Urea Nitrogen 13 mg/dL (8-23); Calcium 7.7 mg/dL (8.5-10.5); Carbon Dioxide 23 mmol/L (22-29); Chloride 100 mmol/L (98-107); Creatinine Clr Calc Pharmacy 50.9106; Glucose 104 mg/dL (65-115); Osmolality Calculated 276 mOsm/kg (285-295); Potassium 3.2 mmol/L (3.5-5.1); Sodium 133 mmol/L (136-145)
[2023-09-14 07:55] VITALS: BP 143/76; PULSE 79; RESP 17; TEMP 36.8; O2SAT 95
--- NOTE | 2023-09-14 09:25 | PC.CHAP ---
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 [] Patient/Family/Request visit [] Outpatient visit [] Follow-up visit [] Physician referral [] Code/Alert [x] Routine visit [] Staff referral [] Actively dying [] Patient sleeping [] Family support [] [] Out of room [] Palliative care [] [] Receiving care in room [] Pre-surgical visit [] Trauma [] Long length of stay [] ICU visit [] Other: Relational/Emotional Strength [] Patient feels connected with others/family/visitors/staff [] Distress [] Loneliness/isolation [] Abandonment Spirituality of Patient [x] Person of Tosha [] Attends Episcopalian of their [place] [x] Believes in Prayer [] Reads Bible or Latter Day materials [] There are Spiritual issues to be addressed Identity Management Consultant Interventions [x] Prayer [x] Active listening [] Non-anxious presence [] Spiritual/emotional support [] Crisis/trauma care [] Spiritual counseling [] Bereavement support [] Provided bereavement packet [] Provided Bible/devotional materials [] Provided toy/stuffed animal, coloring book to patient or family member [] Provided Communion [] Anointing/[place] [] Salvation [x] Completed spiritual assessment [] Other: Impact on Illness or Injury [] Angry [] Fearful [] Anxious [] Often cries [] Exhaustion [] Unable to work [] Unable to attend religious [] Unable to walk/stand [] Unable to read [] Unable to drive [] Unable to eat/drink [] Unable to sleep [] Unable to be with family [] Patient intubated [] Other: Summary Time spent with patient 5 min
[2023-09-14] MEDS: pantoprazole DR 40 mg Tablet PO (09:43)
[2023-09-14] MEDS: azithromycin 250 mg Tablet 500 MG PO (09:43)
[2023-09-14] MEDS: aspirin 81 mg EC Tablet PO (09:43)
[2023-09-14] MEDS: oxybutynin 5 mg Tablet PO (09:43)
[2023-09-14] MEDS: lisinopril 5 mg Tablet PO (09:43)
[2023-09-14] MEDS: cefTRIAXone 1,000 MG in sodium chloride 0.9% (plus) 50 ML 100 MG IV (09:44)
--- NOTE | 2023-09-14 11:39 | P.DS_ITS ---
Discharge Providers Date of Admission: 09/11/23 18:23 Date of Discharge: September 14, 2023 Attending Provider at Admission: Sabrina Romo MD Attending Provider at Discharge: Sabrina Romo MD Primary Care Provider: Jd Gregory Diagnoses at Discharge Discharge Diagnosis (1) Hypotension: Status: Acute (2) Acid reflux disease: Status: Chronic (3) Gastritis: Status: Acute (4) Dehydration: Status: Acute (5) Sepsis: Status: Acute (6) Pneumonia: Status: Acute Reason for Visit Reason for Visit: Fever, Sob, N/V Hospital Course Hospital Course 78-year female who was admitted for management evaluation of hypotension and hypovolemia and community-acquired pneumonia. She was given IV fluids for sepsis along antibiotics, blood culture remain negative, she experienced low- grade fever in the hospital, she was given ceftriaxone and azithromycin. Which improved her symptoms. Her electrolytes were replenished IV fluids discontinued when she was able to tolerate p.o. diet. She was experiencing generalized weakness and fatigue requested PT evaluation. Patient will be needing outpatient physical therapy versus home excise program. Potassium and calcium replenished before discharge in the hospital. Abdomen pelvis CT scan unremarkable. 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 No cardiac etiology for her symptoms, EKG unremarkable echo unremarkable. Troponin were not significantly elevated. Physical Exam Narrative: Awake and alert Generalized weakness fatigue Nonfocal neuroexam Pleasant cooperative Tolerating diet Currently on room air Discharge Data Studies Completed and Pending Completed Studies During Hospitalization Category Date Time Status CT abdomen pelvis w con* [id number] Stat Cat Scan 09/11/23 16:08 Completed XR chest 1V portable [id number] Urgent Exams 09/11/23 14:51 Completed CV. echo complete* [id number] Routine Ultrasound 09/12/23 06:00 Completed Pending at discharge Category Date Time Status Basic Metabolic Panel AM LABS Lab 09/15/23 04:00 Ordered Blood Culture Stat Lab 09/11/23 22:50 Results Radiology Impressions Chest X-Ray 09/11/23 14:51 IMPRESSION: No acute findings. ADDENDUM: 09/11/23 1649 Right lower lobe atelectasis/consolidation. Abdomen/Pelvis CT 09/11/23 16:08 IMPRESSION: No acute abdominal findings. Right lower lobe consolidation/pneumonia. Laboratory Results WBC 7.90 10^3/uL (3.29-11.43) 09/14/23 04:16 RBC 3.73 10^6/uL (3.85-5.65) L 09/14/23 04:16 Hgb 11.00 g/dL (11.27-16.99) L 09/14/23 04:16 Hct 32.9 % (36-47) L 09/14/23 04:16 MCV 88.2 fl (85-98) 09/14/23 04:16 MCH 29.5 pg (27-33) 09/14/23 04:16 MCHC 33.4 g/dL (30-55) 09/14/23 04:16 RDW 12.5 % (12.1-15.1) 09/14/23 04:16 Plt Count 254 10^3/cmm (157-399) 09/14/23 04:16 MPV 9.5 fL (7.4-10.4) 09/14/23 04:16 Neut % (Auto) 74.0 % 09/14/23 04:16 Lymph % (Auto) 16.1 % 09/14/23 04:16 [place] % (Auto) 8.1 % 09/14/23 04:16 Eos % (Auto) 0.4 % 09/14/23 04:16 Baso % (Auto) 0.4 % 09/14/23 04:16 Neut # (Auto) 5.85 10^3/uL (1.8-7.7) 09/14/23 04:16 Lymph # (Auto) 1.3 10^3/uL (0.8-4.8) 09/14/23 04:16 [place] # (Auto) 0.6 10^3/uL (0.2-0.9) 09/14/23 04:16 Eos # (Auto) 0.0 10^3/uL (0.0-0.8) 09/14/23 04:16 Baso # (Auto) 0.0 10^3/uL (0.0-0.1) 09/14/23 04:16 Nucleated RBC % (auto) 0 % 09/14/23 04:16 Nucleated RBCs # 0.0 /100WBC 09/14/23 04:16 Sodium 133 mmol/L (136-145) L 09/14/23 04:16 Potassium 3.2 mmol/L (3.5-5.1) L 09/14/23 04:16 Chloride 100 mmol/L (98-107) 09/14/23 04:16 Carbon Dioxide 23 mmol/L (22-29) 09/14/23 04:16 Anion Gap 13.2 (5-19) 09/14/23 04:16 BUN 13 mg/dL (8-23) 09/14/23 04:16 Creatinine 0.9 mg/dL (0.5-0.9) 09/14/23 04:16 GFR Calculation Not Reportable 09/14/23 04:16 Glucose 104 mg/dL (65-115) 09/14/23 04:16 Calculated Osmolality 276 mOsm/kg (285-295) L 09/14/23 04:16 Lactic Acid 1.4 mmol/L (0.5-2.2) 09/11/23 15:24 Calcium 7.7 mg/dL (8.5-10.5) L 09/14/23 04:16 Magnesium 1.9 mg/dL (1.7-2.3) 09/12/23 02:54 Total Bilirubin 0.5 mg/dL (0.15-1.2) 09/11/23 15:24 AST 20 U/L (0-32) 09/11/23 15:24 ALT 14 U/L (0-33) 09/11/23 15:24 Alkaline Phosphatase 60 U/L (35-105) 09/11/23 15:24 Troponin T Baseline 19 ng/L (0-10) H 09/11/23 20:28 Troponin T 120 Minute 17.11 ng/L (0-10) H 09/11/23 22:50 Delta Troponin T -1.89 ABS# (0-10) L 09/11/23 22:50 Troponin T Hi Sens 6Hr 21.40 ng/L (0-10) H 09/12/23 02:54 Troponin T Hi Sens 6Hr Delta 2.40 ng/L (0-12) 09/12/23 02:54 C-Reactive Protein 239.8 mg/L (0.0-4.9) H 09/12/23 02:54 Total Protein 7.8 g/dL (6.6-8.7) 09/11/23 15:24 Albumin 3.7 g/dL (3.5-5.2) 09/11/23 15:24 Globulin 4.1 g/dL (1.3-4.6) 09/11/23 15:24 Lipase 24 U/L (13-60) 09/11/23 15:24 Urine Color Yellow (Yellow) 09/11/23 20:24 Urine Appearance Clear (CLEAR) 09/11/23 20:24 Urine pH 5 (5-7) 09/11/23 20:24 Ur Specific [place] 1.010 (1.005-1.030) 09/11/23 20:24 Urine Protein 2+ (Negative) H 09/11/23 20:24 Urine Glucose (UA) Norm (Normal) 09/11/23 20:24 Urine Ketones 2+ (Negative) H 09/11/23 20:24 Urine Blood 3+ (Negative) H 09/11/23 20:24 Urine Nitrate Negative (Negative) 09/11/23 20:24 Urine Bilirubin Neg (Negative) 09/11/23 20:24 Urine Urobilinogen 1 mg/dL (Negative) H 09/11/23 20:24 Ur Leukocyte Esterase Negative (Negative) 09/11/23 20:24 Urine RBC 5-10 /hpf (0-2) H 09/11/23 20:24 Urine WBC 15-25 /hpf (0-5) H 09/11/23 20:24 Ur Squamous Epith Cells 0-4 /hpf (0-5) H 09/11/23 20:24 Amorphous Sediment Trace /hpf 09/11/23 20:24 Urine Bacteria Trace /hpf (NONE) 09/11/23 20:24 Hyaline Casts 0-4 /lpf H 09/11/23 20:24 Coarse Granular Casts 0-4 /lpf H 09/11/23 20:24 Urine Mucus Trace /hpf 09/11/23 20:24 Vitals Last Vital Signs Temp 98.3 F 09/14/23 07:55 Pulse 79 09/14/23 07:55 Resp 17 09/14/23 07:55 BP 143/76 09/14/23 07:55 Pulse Ox 95 09/14/23 07:55 O2 Del Method Room Air 09/14/23 07:55 O2 Flow Rate 2 09/12/23 23:02 Discharge Plan Discharge Patient Disposition: Home Condition: Stable Prescriptions: New potassium chloride [Klor-Con M20] 20 mEq Tablet,Er Particles/Crystals 40 meq PO DAILY Qty: 2 0RF calcium carbonate-vitamin D3 [Calcium 500 + D] 500 mg-10 mcg (400 unit) tablet 1 tab PO DAILY Qty: 90 3RF levofloxacin 750 mg tablet 750 mg PO DAILY 7 Days Qty: 7 0RF amlodipine 5 mg tablet 5 mg PO DAILY Qty: 60 0RF ondansetron 4 mg tablet,disintegrating 4 mg PO DAILY Qty: 10 0RF Continued citalopram 20 mg tablet 20 ea PO DAILY omeprazole 40 mg capsule,delayed release(DR/EC) 40 mg PO DAILY oxybutynin chloride 5 mg tablet 5 mg PO DAILY atorvastatin 20 mg tablet 20 mg PO QPM aspirin 81 mg tablet,delayed release (DR/EC) 81 mg PO DAILY Hold Instructions: Resume on 04/18/22. Excedrin Migraine 250-250-65 mg Tablet 2 tab PO Q6H PRN (Reason: headache/fever) PreserVision AREDS 4,296 mcg-226 mg-90 mg Capsule 1 cap PO DAILY Women's 50 Plus Multivitamin 400 mcg-500 mg calcium-20 mcg Tablet 1 tab PO DAILY promethazine 25 mg Tablet 25 mg PO Q6H PRN (Reason: Nausea And Vomiting) Changed lisinopril 5 mg tablet 10 mg PO DAILY Qty: 60 0RF Discharge Orders: Discharge Order (Routine); Ordered 09/14/23 Ordered By: Sabrina Romo Other Ambulatory Orders: DME: Christophe (Order) Timeframe: 2 Weeks Location: None Selected Ordered By: Sabrina Romo Physical Therapy Eval and Treat Outpatient (Order) Timeframe: 2 Weeks Facility: [facility] - Location: Physical Therapy Ordered By: Sabrina Romo Referrals: Jd Gregory [Primary Care Provider] - 09/18/23 1:40 pm (Please check in at 1:25pm to complete any paperwork that might be needed. ) Discharge Diet: Cardiac Discharge Activity: As per PT/OT instructions Patient Instructions: Opioid Safety Discharge Attestations Time Spent in Discharge Care*: greater than 30 min Quality Metrics Clinical Quality Measures [ No reported AMI, CVA or VTE this stay] Coding Level of Care Code Acute Code for Chg Fwd Diagnoses Hypotension I95.9 Acid reflux disease K21.9 Gastritis K29.70 Dehydration E86.0 Sepsis A41.9 Pneumonia J18.9
[2023-09-14 11:44] VITALS: BP 155/87; PULSE 74; RESP 18; TEMP 37.6; O2SAT 93
[2023-09-14] MEDS: calcium gluconate 0.1 gm/mL 10% SDV 10mL 1 GM IVP (12:09)
--- NOTE | 2023-09-14 15:38 | PC.SOCIAL ---
Pg 2 IMM Explained to pt Pg 2 IMM. No questions voiced. Provided pt a copy. Initialed, dated, & timed a copy & placed in chart.
[2023-09-14 15:58] VITALS: BP 155/87; PULSE 74; RESP 18; TEMP 37.6; O2SAT 93
== END 2023-09-14 15:55 | disposition home or self-care (01) | DRG 195 ==
LOC: ER 17:41 → MEDSURG 18:24
PROVIDERS: Physician Assistant; Admitting Provider Internal Medicine; Emergency Provider Emergency Medicine; PCP Family Medicine; Visit Provider Internal Medicine
DX: J18.9 Pneumonia, unspecified organism (principal); I95.9 Hypotension, unspecified; E86.0 Dehydration; K29.70 Gastritis, unspecified, without bleeding; K21.9 Gastro-esophageal reflux disease without esophagitis; Z79.82 Long term (current) use of aspirin; I10 Essential (primary) hypertension
CPT/HCPCS: 36415; 71045; 74177; 80048; 80053; 81001; 83605; 83690; 83735; 84484; 85025; 86140; 87040; 93005; 93306; 94640; 96365; 96367; 96372; 97110; 97161; 99285; J0612; J0696; J1650; J2020; J2185; J2405; J7030; Q0144; Q9967

== ENCOUNTER → 2025-03-22 07:45 | Outpatient (BNVA) | payer MEDICARE, OTHER, SELFPAY | PROVIDERS: PCP Family Medicine; Visit Provider Student in an Organized Health Care Education/Training Program | DX: M25.561 Pain in right knee (principal); M25.562 Pain in left knee; M17.10 Unilateral primary osteoarthritis, unspecified knee | CPT/HCPCS: 20610; 73560; 73565; 99203; J3301; J9999 ==